=== PATIENT | female | born 1990 | race Caucasian/White ===

== ENCOUNTER 2016-12-06 14:52 | Emergency (ER) | payer OTHER ==
[~2016-12-06] VITALS: Wt 99.8 kg
[~2016-12-06 14:52] MED LIST: AMOXICILLIN500 M2 PO; ANAPROX DS550 MG PO; BACTRIM DS 8001 TA1 PO; CIPRO500 MG PO; MACROBID100 M1 PO; MOTRIN600 MG PO; MULTIPLE VITAMI1 CAP PO; TORADOL10 MG PO; TRAMADOL HCL50 MG PO; ZOFRAN ODT4 MG SL; ZYRTEC10 MG PO
[2016-12-06] MEDS ORDERED: SERTRALINE HYDR50 MG PO (14:57)
[2016-12-06] MEDS ORDERED: VITAMIN D50000 I3 PO (14:57)
[2016-12-06] MEDS ORDERED: Nizoral 2%15 GM T (14:57)
[2016-12-06] MEDS ORDERED: Kenalog 0.5% Oi15 GM T (14:57)
[2016-12-06 15:00] VITALS: BP 120/72
[2016-12-06] MEDS ORDERED: VIBRAMYCIN100 MG PO (15:26)
== END 2016-12-06 15:34 | disposition home or self-care (01) ==
LOC: ED 14:52
DX: S31.159A Open bite of abdominal wall, unspecified quadrant without penetration into peritoneal cavity, initial encounter (principal); Z88.8 Allergy status to other drugs, medicaments and biological substances; W57.XXXA Bitten or stung by nonvenomous insect and other nonvenomous arthropods, initial encounter; Y93.89 Activity, other specified; Y92.9 Unspecified place or not applicable; Y99.9 Unspecified external cause status

== ENCOUNTER → 2017-04-20 | Outpatient (CLI) | payer OTHER ==
[~2017-04-20] MED LIST changes: +Kenalog 0.5% Oi15 GM T; +Nizoral 2%15 GM T; +SERTRALINE HYDR50 MG PO; +VIBRAMYCIN100 MG PO; +VITAMIN D50000 I3 PO
[2017-04-20 17:47] LABS: BASO % 0.1 % (0.0-1.0); EOS # 0.1 10*3/uL (0.0-0.4); EOS % 1.2 % (1.0-4.0); HEMATOCRIT 40.4 % (37.0-47.0); HEMOGLOBIN 13.7 g/dl (12.0-16.0); LYMPH # 2.4 10*3/uL (1.3-4.4); LYMPH % 33.1 % (27.0-41.0); MEAN CELL VOLUME 91.2 fl (81.0-99.0); MEAN CORPUSCULAR HGB 30.9 pg (27.0-31.0); MEAN CORPUSCULAR HGB CONC 33.9 g/dl (33.0-37.0); MEAN PLATELET VOLUME 9.4 fl (9.6-12.3); MONO # 0.6 10*3/uL (0.1-1.0); MONO % 7.6 % (3.0-9.0); NEUT # 4.2 10*3/uL (2.3-7.9); NEUT % 57.7 % (47.0-73.0); PLATELET COUNT AUTOMATED 274 10*3/uL (130-400); RED BLOOD COUNT 4.43 10*6/uL (4.10-5.10); WHITE BLOOD COUNT 7.3 10*3/uL (4.8-10.8)
[2017-04-20 18:24] LABS: ALBUMIN 3.9 gm/dl (3.1-4.5); ALKALINE PHOSPHATASE 62 U/L (45-117); BILIRUBIN, TOTAL 0.4 mg/dl (0.2-1.0); BUN 11 mg/dl (7-24); CARBON DIOXIDE 28 mmol/L (21-32); CHLORIDE 103 mmol/L (98-107); CHOLESTEROL 211 mg/dL (<200); EST GLOM FILT AFRICAN AMERICAN > 60 ml/min; GLUCOSE 100 mg/dL (65-99); HDL CHOLESTEROL 45 mg/dl (40-60); LDL CHOLESTEROL 136 mg/dL (9-159); SGOT/AST 15 IU/L (3-35); SGPT/ALT 20 U/L (12-78); SODIUM 138 mmol/L (136-145); TOTAL PROTEIN 8.3 gm/dL (6.4-8.2); TRIGLYCERIDES 151 mg/dl (<150); VLDL CHOLESTEROL 30 mg/dL (6-40)
== END | disposition home or self-care (01) ==
LOC: LAB 17:23
PROVIDERS: Nurse Practitioner Gerontology
DX: E55.9 Vitamin D deficiency, unspecified (principal)

== ENCOUNTER 2018-08-22 16:04 | Emergency (ER) | payer BC ==
[~2018-08-22] VITALS: Ht 160 cm; Wt 103.0 kg
[2018-08-22 16:04] VITALS: BP 126/61
[2018-08-22] MEDS ORDERED: TEMOVATE30 GM T (16:32)
== END 2018-08-22 16:27 | disposition home or self-care (01) ==
LOC: ED 16:04
DX: S80.862A Insect bite (nonvenomous), left lower leg, initial encounter (principal); S80.861A Insect bite (nonvenomous), right lower leg, initial encounter; S40.862A Insect bite (nonvenomous) of left upper arm, initial encounter; S40.861A Insect bite (nonvenomous) of right upper arm, initial encounter; Z88.8 Allergy status to other drugs, medicaments and biological substances; Z79.899 Other long term (current) drug therapy; W57.XXXA Bitten or stung by nonvenomous insect and other nonvenomous arthropods, initial encounter; Y93.89 Activity, other specified; Y92.89 Other specified places as the place of occurrence of the external cause; Y99.8 Other external cause status

== ENCOUNTER → 2020-06-03 | Outpatient (CLI) | payer OTHER ==
[~2020-06-03] MED LIST changes: +PREDNISONE50 MG PO; +TEMOVATE30 GM T
[2020-06-03 15:20] LABS: BASO % 0.3 % (0.0-1.0); EOS % 0.5 % (1.0-4.0); HEMATOCRIT 41.1 % (37.0-47.0); LYMPH # 2.6 10*3/uL (1.3-4.4); LYMPH % 32.5 % (27.0-41.0); MEAN CELL VOLUME 92.6 fl (81.0-99.0); MEAN CORPUSCULAR HGB 29.7 pg (27.0-31.0); MEAN CORPUSCULAR HGB CONC 32.1 g/dl (33.0-37.0); MEAN PLATELET VOLUME 9.6 fl (9.6-12.3); MONO # 0.5 10*3/uL (0.1-1.0); MONO % 6.7 % (3.0-9.0); NEUT # 4.7 10*3/uL (2.3-7.9); NEUT % 59.7 % (47.0-73.0); PLATELET COUNT AUTOMATED 361 10*3/uL (130-400); RED BLOOD COUNT 4.44 10*6/uL (4.10-5.10); RED CELL DISTRI WIDTH 12.3 % (0-14.5); WHITE BLOOD COUNT 7.9 10*3/uL (4.8-10.8)
[2020-06-03 15:36] LABS: ALBUMIN 3.8 gm/dl (3.1-4.5); ALKALINE PHOSPHATASE 57 U/L (45-117); BUN 10 mg/dl (7-24); CHLORIDE 106 mmol/L (98-107); CREATININE 0.91 mg/dL (0.55-1.02); POTASSIUM 3.7 mmol/L (3.5-5.1); SGOT/AST 25 IU/L (3-35); SGPT/ALT 86 U/L (12-78); SODIUM 138 mmol/L (136-145); TOTAL PROTEIN 7.9 gm/dL (6.4-8.2)
[2020-06-03 15:44] LABS: THYROID STIM HORMONE (HS) 0.922 uIU/ml (0.358-4.75)
[2020-06-04 08:12] LABS: PROLACTIN 15.5 ng/mL (4.8-23.3)
[2020-06-04 09:07] LABS: FOLLICLE STIMULATING HORMONE 5.2 mIU/mL (.)
[2020-06-06 21:08] LABS: TESTOSTERONE FREE, (DIRECT) 2.8 pg/mL (0.0-4.2)
== END | disposition home or self-care (01) ==
LOC: LAB 14:49 → US 15:00
PROVIDERS: ATTEND Nurse Practitioner Women's Health
DX: N92.6 Irregular menstruation, unspecified (principal); N64.52 Nipple discharge; Z87.42 Personal history of other diseases of the female genital tract

== ENCOUNTER → 2020-11-19 | Outpatient (CLI) | payer OTHER | END | disposition home or self-care (01) | LOC: COVID19 09:51 | PROVIDERS: ATTEND Internal Medicine | DX: Z11.52 Encounter for screening for COVID-19 (principal) ==

== ENCOUNTER 2022-02-04 15:19 | Emergency (ER) | payer OTHER ==
[~2022-02-04] VITALS: Wt 106.6 kg
[2022-02-04 15:32] VITALS: BP 128/72
[2022-02-04] MEDS ORDERED: BUSPIRONE HCL10 MG PO (15:47)
[2022-02-04] MEDS ORDERED: HYDROCODONE-AC1 EAC1 PO (18:09)
== END 2022-02-04 18:18 | disposition home or self-care (01) ==
LOC: ED 15:19
DX: S93.402A Sprain of unspecified ligament of left ankle, initial encounter (principal); Z98.890 Other specified postprocedural states; Z90.89 Acquired absence of other organs; Z79.899 Other long term (current) drug therapy; Z88.6 Allergy status to analgesic agent; Z88.5 Allergy status to narcotic agent; X50.1XXA Overexertion from prolonged static or awkward postures, initial encounter; Y93.89 Activity, other specified; Y92.89 Other specified places as the place of occurrence of the external cause; Y99.9 Unspecified external cause status

== ENCOUNTER 2022-09-19 20:52 | Emergency (ER) | payer OTHER ==
[~2022-09-19] VITALS: Ht 160 cm; Wt 108.9 kg
[~2022-09-19 20:52] MED LIST changes: +BUSPIRONE HCL10 MG PO; +HYDROCODONE-AC1 EAC1 PO
[2022-09-19 21:20] VITALS: BP 135/77
[2022-09-19] MEDS ORDERED: MEDROL DOSEPAK4 MG PO (22:02)
[2022-09-19] MEDS ORDERED: CEPHALEXIN500 M1 PO (22:02)
== END 2022-09-19 22:29 | disposition home or self-care (01) ==
LOC: ED 20:52
DX: L24.0 Irritant contact dermatitis due to detergents (principal); Z88.8 Allergy status to other drugs, medicaments and biological substances; Z90.89 Acquired absence of other organs; Z98.890 Other specified postprocedural states

== ENCOUNTER 2023-04-04 06:45 | Emergency (ER) | payer OTHER ==
[~2023-04-04] VITALS: Ht 160 cm; Wt 107.5 kg
[~2023-04-04 06:45] MED LIST changes: +CEPHALEXIN500 M1 PO; +MEDROL DOSEPAK4 MG PO
[2023-04-04 07:05] VITALS: BP 143/94
[2023-04-04 08:22] LABS: BILIRUBIN Negative (Negative); BLOOD 3+ (Negative); CLARITY Cloudy (Clear); COLOR Yellow (Yellow); GLUCOSE Negative (Negative); KETONE Trace (Negative); LEUKO ESTERASE Negative (Negative); NITRITE Negative (Negative); PH 7.5 (4.5-8.0)
[2023-04-04 08:28] LABS: BACTERIA 2+; EPITHELIAL CELLS TNTC; RBC TNTC rbc/hpf (0-2)
[2023-04-04 08:44] LABS: BASO % 0.2 % (0.0-1.0); EOS % 0.1 % (1.0-4.0); HEMATOCRIT 42.8 % (37.0-47.0); LYMPH # 1.5 10*3/uL (1.3-4.4); LYMPH % 12.7 % (27.0-41.0); MEAN CORPUSCULAR HGB 32.4 pg (27.0-31.0); MEAN CORPUSCULAR HGB CONC 34.8 g/dl (33.0-37.0); MEAN PLATELET VOLUME 9.8 fl (9.6-12.3); MONO # 0.6 10*3/uL (0.1-1.0); NEUT # 9.7 10*3/uL (2.3-7.9); NEUT % 81.7 % (47.0-73.0); PLATELET COUNT AUTOMATED 288 10*3/uL (130-400); RED CELL DISTRI WIDTH 12.2 % (0-14.5); WHITE BLOOD COUNT 11.9 10*3/uL (4.8-10.8)
[2023-04-04 09:19] LABS: ALKALINE PHOSPHATASE 51 U/L (46-116); BUN 6 mg/dl (9-23); CHLORIDE 108 mmol/L (98-107); LIPASE 30 U/L (12-53); POTASSIUM 4.2 mmol/L (3.4-5.1); SGPT/ALT 15 U/L (10-49); TOTAL PROTEIN 7.5 gm/dL (6.0-8.0)
== END 2023-04-04 11:15 | disposition home or self-care (01) ==
LOC: ED 06:45
PROVIDERS: Emergency Medicine
DX: O46.91 Antepartum hemorrhage, unspecified, first trimester (principal); Z3A.01 Less than 8 weeks gestation of pregnancy; Z79.899 Other long term (current) drug therapy; Z88.8 Allergy status to other drugs, medicaments and biological substances; Z88.5 Allergy status to narcotic agent; Z90.89 Acquired absence of other organs; Z98.890 Other specified postprocedural states

== ENCOUNTER 2023-04-10 11:23 | Emergency (ER) | payer OTHER ==
[~2023-04-10] VITALS: Ht 160 cm; Wt 107.5 kg
[2023-04-10 12:21] VITALS: BP 126/74
[2023-04-10 13:34] LABS: BASO % 0.2 % (0.0-1.0); EOS # 0.1 10*3/uL (0.0-0.4); EOS % 0.5 % (1.0-4.0); HEMATOCRIT 41.2 % (37.0-47.0); LYMPH # 2.7 10*3/uL (1.3-4.4); LYMPH % 28.8 % (27.0-41.0); MEAN CELL VOLUME 92.6 fl (81.0-99.0); MEAN CORPUSCULAR HGB 31.7 pg (27.0-31.0); MEAN CORPUSCULAR HGB CONC 34.2 g/dl (33.0-37.0); MEAN PLATELET VOLUME 9.7 fl (9.6-12.3); MONO # 0.7 10*3/uL (0.1-1.0); MONO % 7.6 % (3.0-9.0); NEUT # 5.8 10*3/uL (2.3-7.9); NEUT % 62.6 % (47.0-73.0); PLATELET COUNT AUTOMATED 310 10*3/uL (130-400); RED BLOOD COUNT 4.45 10*6/uL (4.10-5.10); RED CELL DISTRI WIDTH 11.9 % (0-14.5); WHITE BLOOD COUNT 9.2 10*3/uL (4.8-10.8)
[2023-04-10 14:27] LABS: ALKALINE PHOSPHATASE 57 U/L (46-116); BUN 5 mg/dl (9-23); CHLORIDE 106 mmol/L (98-107); POTASSIUM 3.9 mmol/L (3.4-5.1); SGPT/ALT 17 U/L (10-49); TOTAL PROTEIN 7.5 gm/dL (6.0-8.0)
== END 2023-04-10 15:07 | disposition home or self-care (01) ==
LOC: ED 11:23
PROVIDERS: Physician Assistant Medical
DX: O03.9 Complete or unspecified spontaneous abortion without complication (principal); Z88.8 Allergy status to other drugs, medicaments and biological substances; Z88.6 Allergy status to analgesic agent; Z98.890 Other specified postprocedural states; Z90.89 Acquired absence of other organs

== ENCOUNTER 2024-02-12 12:28 | Emergency (ER) | payer OTHER ==
[~2024-02-12] VITALS: Ht 160 cm; Wt 112.0 kg
[2024-02-12 12:59] VITALS: BP 110/60
[2024-02-12] MEDS ORDERED: HYDROCODONE-AC1 EAC1 PO (13:00)
[2024-02-12] MEDS ORDERED: ELIQUIS2.5 M1 PO (13:00)
[2024-02-12] MEDS ORDERED: PREDNISONE20 M1 PO (14:33)
[2024-02-12] MEDS ORDERED: methylPREDNISolone sod succ 125 MG VIAL IM ONE (14:35)
== END 2024-02-12 14:44 | disposition home or self-care (01) ==
LOC: ED 12:28
DX: L25.9 Unspecified contact dermatitis, unspecified cause (principal); Z88.8 Allergy status to other drugs, medicaments and biological substances; Z88.6 Allergy status to analgesic agent; Z79.899 Other long term (current) drug therapy; Z98.890 Other specified postprocedural states; Z90.89 Acquired absence of other organs

== ENCOUNTER 2024-05-25 14:02 | Emergency (ER) | payer OTHER ==
[~2024-05-25] VITALS: Ht 160 cm; Wt 108.9 kg
[~2024-05-25 14:02] MED LIST changes: +ELIQUIS2.5 M1 PO; +PREDNISONE20 M1 PO
[2024-05-25 14:28] VITALS: BP 119/65
[2024-05-25] MEDS ORDERED: Sulfamethoxazole/Trimethopri 1 TAB TAB PO ONE (14:50)
[2024-05-25] MEDS ORDERED: SEPTDS PO (14:58)
== END 2024-05-25 15:03 | disposition home or self-care (01) ==
LOC: ED 14:02
DX: L03.317 Cellulitis of buttock (principal); Z88.8 Allergy status to other drugs, medicaments and biological substances; Z88.5 Allergy status to narcotic agent; Z90.89 Acquired absence of other organs; Z90.49 Acquired absence of other specified parts of digestive tract; Z98.890 Other specified postprocedural states; Z87.891 Personal history of nicotine dependence